=== PATIENT | male | born 1940 | race Two or more races ===

== ENCOUNTER 2017-08-09 07:13 | Day surgery (SDC) | payer MEDICARE, BC ==
[~2017-08-09] VITALS: Ht 167.6 cm; Wt 79.4 kg
[2017-08-09] VITALS (7 sets, daily range): BP systolic 118–160; BP diastolic 62–80
[~2017-08-09 07:13] MED LIST: LR 1000ml 1,000 ML IVLG SCH
[2017-08-09] MEDS ORDERED: CATAPRES-TTS 11 EACH TDERMAL (07:42)
[2017-08-09] MEDS ORDERED: AMLODIPINE BESYL5 MG ORAL (07:42)
[2017-08-09] MEDS ORDERED: AVAPRO300 MG ORAL (07:42)
[2017-08-09] MEDS ORDERED: SYNTHROID75 MCG ORAL (07:42)
[2017-08-09] MEDS ORDERED: XARELTO10 MG ORAL (07:42)
[2017-08-09] MEDS ORDERED: PINDOLOL10 MG PO (07:42)
[2017-08-09] MEDS ORDERED: ATORVASTATIN CA40 MG ORAL (07:42)
[2017-08-09] MEDS ORDERED: METFORMIN HCL500 M1 ORAL (07:42)
[2017-08-09] MEDS ORDERED: FLECAINIDE ACE100 MG ORAL (07:42)
[2017-08-09] MEDS ORDERED: HYDROCHLOROTHIA25 MG ORAL (07:42)
--- NOTE | 2017-08-09 07:44 | Short Stay Surgery H&P ---
History of Present Illness History of Present Illness Chief Complaint Abdominal pains ans history of colon polyps. HPI Rik Melendez is a 77 year old male who was admitted on for Abdominal Pain/ colon polyps fro screening Patient History Allergies: Coded Allergies: No Known Allergies (Unverified , 08/06/17) PAST MEDICAL HISTORY: (1) Hypertension (2) Hyperlipidemia (3) Diabetes (4) Hypothyroid Past Surgeries: Social History: Review of Systems Cardiovascular: Reports: no symptoms Respiratory: Reports: no symptoms Skeletal: Reports: no symptoms Gastrointestinal: Reports: other Genitourinary: Reports: no symptoms Neurologic: Reports: no symptoms Endocrine: Reports: diabetes - type 2 Hematologic: Reports: no symptoms Physical Exam Skin: normal HENT: normal Heart: normal Lungs: normal Abdomen: normal Extremities: normal Genitourinary: normal Plan Plan of Care Total colonoscopy Preop Interventions None. Summary of Findings See the reports Final Diagnosis: Attestation Are the patient's medical conditions optimized for surgery? Attestation Response: yes HECTOR GOODE Aug 09, 2017 07:44
--- NOTE | 2017-08-09 07:44 | Pre-Procedure Note/Attestation ---
Pre-Procedure Note/Attestation Complete Prior to Procedure Planned Procedure: left Procedure Narrative: Endoscopic exam of the coloon Indications for Procedure Pre-Operative Diagnosis: R/O colon polyps/ CA Attestation I attest that I discussed the nature of the procedure; its benefits; risks and complications; and alternatives (and the risks and benefits of such alternatives ), prior to the procedure, with the patient (or the patient's legal u.s. representative). I attest that, if there was a reasonable possibility of needing a blood transfusion, the patient (or the patient's legal u.s. representative) was given the [facility] standardized written summary, pursuant to the Brian Alejandro Blood Safety Act ([place] Health and Safety Code # 1645, as amended). I attest that I re-evaluated the patient just prior to the surgery and that there has been no change in the patient's H&P, except as documented below: RUSSEL,SAID Aug 09, 2017 07:44
[2017-08-09] MEDS ORDERED: fentaNYL 100 mcg/2 mL IV ONE (08:00)
[2017-08-09] MEDS ORDERED: LR 1000ml ONE (08:00)
[2017-08-09] MEDS ORDERED: Midazolam 2mg/2ml Inj ONE (08:00)
[2017-08-09] MEDS ORDERED: Propofol 200mg/20ml IV ONE (08:00)
--- NOTE | 2017-08-09 08:03 | Short Stay Surgery H&P ---
History of Present Illness History of Present Illness HPI Rik Melendez is a 77 year old male who was admitted on for Abdominal Pain Patient History Allergies: Coded Allergies: No Known Allergies (Unverified , 08/06/17) PAST MEDICAL HISTORY: (1) Atrial fibrillation Past Surgeries: Social History: Medication History Scheduled Amlodipine Besylate* (Amlodipine Besylate*), 5 MG ORAL BID, (Reported) Atorvastatin Calcium* (Atorvastatin Calcium*), 40 MG ORAL BEDTIME, (Reported) Loijcwnbo-Yod-9* (Yymlnjmn-Wkv-3*), 1 PATCH TDERMAL ONCE A WEEK, (Reported) Flecainide Acetate (Flecainide Acetate*), 100 MG ORAL BID, (Reported) Hydrochlorothiazide* (Hydrochlorothiazide*), 25 MG ORAL DAILY, (Reported) Irbesartan* (Avapro*), 300 MG ORAL DAILY, (Reported) Levothyroxine Sodium* (Synthroid*), 75 MCG ORAL DAILY, (Reported) Metformin Hcl* (Metformin Hcl*), 500 MG ORAL TWICE A DAY, (Reported) Pindolol (Pindolol), 10 MG PO BID, (Reported) Rivaroxaban (Xarelto*), 20 MG ORAL DAILY, (Reported) Plan Attestation Are the patient's medical conditions optimized for surgery? HECTOR GOODE Aug 09, 2017 08:03
--- NOTE | 2017-08-09 08:26 | Endoscopy Procedure Note ---
Endoscopy Procedure Note General Indication for Procedure: History of colon polyps for screening Procedures Performed: colonoscopy - Mild diverticulosis of the left colon. Multiple hyperplastic diminutive polyps removed from rectal area, otherwise normal colonoscopy upto the cecal base as examined. polyps removed by cold biopsy forceps and cold snare. Specimen: yes Pt Tolerated Procedure Well: Yes Estimated Blood Loss: none Anesthesia Anesthesiologist: Dr. Oviedo Anesthesia: moderate sedation Inserted Devices Implant(s) used?: No Quality Quality of Bowel Preparation: Fair Did scope reach the cecum?: Yes Was there any complications?: No GI Core Measures 50 yrs or older w/o bx or poly: Yes 10yrs. F/U not recommended: Yes If not recommended, why?: Med reason:<3 yrs.: System Reason:<3 yrs.: Last colonoscopy >= to 3yrs: Yes HECTOR GOODE Aug 09, 2017 08:26
--- NOTE | 2017-08-09 08:27 | Discharge Instructions ---
Discharge Instructions Discharge Instructions Follow up with: See the docotor in office after two weeks. For Congestive Heart Failure Reminder Report to your physician any weight gain of 5 pounds or more in one week. HECTOR GOODE Aug 09, 2017 08:27
--- NOTE | 2017-08-09 19:15 | Operative Note - Dictated ---
DATE OF OPERATION: 08/09/2017 PROCEDURE: Total colonoscopy with multiple polypectomies. SURGEON: Marley Quintero M.D. PREOPERATIVE DIAGNOSIS: History of colon polyps. POSTOPERATIVE DIAGNOSES: 1. Mild diverticulosis of the left colon. 2. Multiple hyperplastic/diminutive rectal polyps removed with cold biopsy forceps and cold snare, otherwise normal total colonoscopy. MEDICATION USED: Per Dr. Oviedo, anesthesiologist. INSTRUMENT: GIF Olympus videocolonoscope. DESCRIPTION OF PROCEDURE: The patient, after arriving endoscopy unit, was told about risks and benefits of the procedure, which he accepted and signed informed consent. At this time, he was put on the left lateral decubitus position. After adequate IV sedation, the scope was gently passed through the anal area and a retroflexion maneuver which was applied revealed evidence of 3 small 1 to 2 mm hyperplastic polypoid lesions in the rectum, which were removed with cold biopsy forceps. Subsequently, the scope was advanced further at the level of 25 cm from anus. At the rectosigmoid angle, there was another hyperplastic diminutive polypoid lesion, which was grabbed with cold snare and removed. The site of the polypectomy did not reveal any major bleeding. At this time, the scope was passed through somewhat redundant left colon which revealed evidence of occasional diverticular openings. Finally, the scope reached to splenic flexure. From there, it was guided into the transverse colon, hepatic flexure, and finally arrived at the right colon and base of the cecum. All these areas, however, remained to be normal and no further polyps were found. The colon cleanup was fair and at this point, within 5/6 minutes, the scope was gradually pulled out and further examination of the colon did not reveal any other pathology. The patient tolerated the procedure well and left the endoscopy room in ca good condition. Marley Quintero M.D. DR: JOSIAH JOB#: [id number] CC:
== END 2017-08-09 09:30 | disposition home or self-care (01) ==
LOC: GAS 07:13
DX: K57.30 Diverticulosis of large intestine without perforation or abscess without bleeding (principal); K63.5 Polyp of colon; I10 Essential (primary) hypertension; E78.5 Hyperlipidemia, unspecified; E11.9 Type 2 diabetes mellitus without complications; E03.9 Hypothyroidism, unspecified; Z79.84 Long term (current) use of oral hypoglycemic drugs; D12.6 Benign neoplasm of colon, unspecified
CPT/HCPCS: 45380; 82962; J2250; J2704; J3010; J7120; 94003; 94150